=== PATIENT | male | born 2005 | race African-American/Black ===

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

== ENCOUNTER 2024-03-10 16:43 | Emergency (ER) | payer OTHER, MEDICAID ==
[~2024-03-10] VITALS: Ht 203.2 cm; Wt 110.0 kg
[2024-03-10] MEDS ORDERED: IBUP-1022 (16:53)
[2024-03-10 18:57] VITALS: BP 134/77; TEMP 97.8; O2SAT 99
[2024-03-10] MEDS ORDERED: AMOX875T2 PO (19:11)
== END 2024-03-10 19:40 | disposition home or self-care (01) ==
LOC: M ED 16:43
DX: J01.90 Acute sinusitis, unspecified (principal); F12.10 Cannabis abuse, uncomplicated; Z87.891 Personal history of nicotine dependence; Z79.2 Long term (current) use of antibiotics; Z79.1 Long term (current) use of non-steroidal anti-inflammatories (NSAID)